=== PATIENT | female | born 1970 | race Caucasian/White ===

== ENCOUNTER → 2021-07-01 | Day surgery (SDC) | payer OTHER ==
[~2021-07-01] MED LIST: ARMOUR THYROID15 MG PO; EPINEPHRINE HCL 1:1000 1ML 1 MG/ML AMP ONE; GENTAMICIN SULFATE 40 MG/ML 2 ML VIAL ONE; HYDROCODON-ACE1 EAC9 PO; LIDOCAINE 1% W/EPINEPHRINE 20 ML VIAL ONE; LIDOCAINE HCL 1% LOCAL INJ 20 ML VIAL ONE; METOCLOPRAMIDE HCL 10 MG/2ML VIAL ONE; MUPIROCIN 2% OINT 22 GM TUBE ONE; ONDANSETRON HCL INJ 2MG/ML 2ML 2 MG/ML VIAL ONE; PROMETHAZINE HCL (IM) 25 MG/ML VIAL IM ONE; SODIUM CHLORIDE 0.9% 50ML 50 ML ONE; VICODIN HP 10-1 EAC1 PO; Z.0.ESTRACE0.5 MG; Z.0.LEVOTHROID50 MCG
[2021-07-01 10:45] VITALS: BP 121/67
== END | disposition home or self-care (01) ==
LOC: OR 06:42
PROVIDERS: ATTEND Plastic Surgery
DX: D17.22 Benign lipomatous neoplasm of skin and subcutaneous tissue of left arm (principal); E65 Localized adiposity; Z48.89 Encounter for other specified surgical aftercare; Z88.6 Allergy status to analgesic agent; Z01.810 Encounter for preprocedural cardiovascular examination; Z01.812 Encounter for preprocedural laboratory examination; Z20.822 Contact with and (suspected) exposure to COVID-19
CPT/HCPCS: 15879; 19342; 23071; 88304; 93005; J0171; J0690; J1580; J2001; J2405; J2550; J2765; L8600; U0002

== ENCOUNTER → 2022-06-10 | Day surgery (SDC) | payer OTHER ==
[~2022-06-10] MED LIST changes: -EPINEPHRINE HCL 1:1000 1ML 1 MG/ML AMP ONE; -GENTAMICIN SULFATE 40 MG/ML 2 ML VIAL ONE; +HYOSCYAMINE SULFATE 0.5 MG/ML INJ ONE; -LIDOCAINE 1% W/EPINEPHRINE 20 ML VIAL ONE; -LIDOCAINE HCL 1% LOCAL INJ 20 ML VIAL ONE; -METOCLOPRAMIDE HCL 10 MG/2ML VIAL ONE; -MUPIROCIN 2% OINT 22 GM TUBE ONE; -ONDANSETRON HCL INJ 2MG/ML 2ML 2 MG/ML VIAL ONE; -PROMETHAZINE HCL (IM) 25 MG/ML VIAL IM ONE; +PROPOFOL IV EMULSION 10 MG/ML 20 ML VIAL ONE; +PROPOFOL IV EMULSION 50 ML IV ONE; -SODIUM CHLORIDE 0.9% 50ML 50 ML ONE; +[UNRECOGNIZED DRUG - MIXTURE]
[2022-06-10 08:54] VITALS: BP 126/79
== END | disposition home or self-care (01) ==
LOC: OR 05:57
PROVIDERS: ATTEND Internal Medicine Gastroenterology
DX: Z12.11 Encounter for screening for malignant neoplasm of colon (principal); K64.8 Other hemorrhoids; Z71.3 Dietary counseling and surveillance; E03.9 Hypothyroidism, unspecified; Z88.6 Allergy status to analgesic agent; Z01.810 Encounter for preprocedural cardiovascular examination; Z68.28 Body mass index [BMI] 28.0-28.9, adult; Z86.16 Personal history of COVID-19
CPT/HCPCS: 45378; 93005; J2704; J1980

== ENCOUNTER 2022-07-20 10:19 | Observation (INO) | payer OTHER ==
[~2022-07-20] VITALS: Ht 175.3 cm; Wt 86.6 kg
[~2022-07-20 10:19] MED LIST changes: -HYOSCYAMINE SULFATE 0.5 MG/ML INJ ONE; -PROPOFOL IV EMULSION 10 MG/ML 20 ML VIAL ONE; -PROPOFOL IV EMULSION 50 ML IV ONE
[2022-07-20] MEDS ORDERED: FAMOTIDINE 20 MG/2 ML VIAL IV ONE ×2 (10:45→11:18)
[2022-07-20] MEDS ORDERED: ASPIRIN 325 MG TAB PO ONE (10:45)
[2022-07-20] MEDS ORDERED: ASPIRIN 325 MG TAB ONE (11:18)
[2022-07-20] MEDS ORDERED: DIPHENHYDRAMINE HCL INJ 50 MG/ML VIAL IV PRN (11:45)
[2022-07-20] MEDS ORDERED: SODIUM CHLORIDE FLUSH 10 ML SYR INJ PRN (11:45)
[2022-07-20] MEDS ORDERED: ACETAMINOPHEN 325 MG TAB PO PRN (11:45)
[2022-07-20] MEDS ORDERED: ONDANSETRON HCL INJ 2MG/ML 2ML 2 MG/ML VIAL IV PRN (11:45)
[2022-07-20] MEDS ORDERED: ZOLPIDEM TARTRATE 5 MG TAB PO PRN (11:45)
[2022-07-20 15:47] VITALS: BP 135/74
[2022-07-20 16:39] VITALS: BP 135/74
[2022-07-20 20:00] VITALS: BP 114/69
[2022-07-20] MEDS: FAMOTIDINE 20 MG TAB PO SCH (21:10)
[2022-07-20 23:29] VITALS: BP 114/69
[2022-07-20 23:34] VITALS: BP 114/69
[2022-07-21 00:39] VITALS: BP 98/63
[2022-07-21 01:25] LABS: CHOL/HDL RATIO 3.3 (3.0-3.6)
[2022-07-21 05:23] VITALS: BP 116/67
[2022-07-21 05:58] LABS: BASOPHILS % 0.4 % (0.0-1.0); EOSINOPHILS # (AUTO) 0.2 (0.0-0.4); HEMATOCRIT 44.3 % (34.2-44.1); HEMOGLOBIN 14.5 g/dL (12.0-16.0); LYMPHOCYTES # (AUTO) 2.2 (1.0-3.2); LYMPHOCYTES % 26.5 % (18.0-39.1); MEAN CORPUSCULAR HGB CONC 32.7 g/dL (31-35); MEAN CORPUSCULAR VOLUME 85.7 fL (81-99); MONOCYTES # (AUTO) 0.7 (0.2-0.8); MONOCYTES % 8.1 % (4.4-11.3); NEUTROPHILS # (AUTO) 5.3 (2.1-6.9); NEUTROPHILS % 62.8 % (38.7-80.0); PLATELET COUNT 199 x10e3/uL (140-360); RED BLOOD COUNT 5.17 x10e6/uL (3.6-5.1); RED CELL DISTRIBUTION WIDTH 12.4 % (11.7-14.4)
[2022-07-21 06:24] LABS: ALBUMIN/GLOBULIN RATIO 1.3 (0.8-2.0); ANION GAP 13.4 mmol/L (8-16); CALCIUM 8.7 mg/dL (8.4-10.2); CREATININE, SERUM 0.82 mg/dL (0.57-1.11); POTASSIUM 4.4 mmol/L (3.5-5.1)
[2022-07-21 06:43] LABS: THYROID STIMULATING HORMONE 1.571 uIU/mL (0.350-4.940)
[2022-07-21 08:38] VITALS: BP 116/70
[2022-07-21] MEDS ORDERED: ASPIRIN 325 MG TAB EC PO SCH (09:00)
[2022-07-21] MEDS: FAMOTIDINE 20 MG TAB PO SCH (09:00)
== END 2022-07-21 10:27 | disposition home or self-care (01) ==
LOC: FSED 10:23 → ERHOLD 11:46 → MED/SURG3 14:00
PROVIDERS: ADMIT Internal Medicine; ATTEND Internal Medicine
DX: R07.89 Other chest pain (principal); E03.9 Hypothyroidism, unspecified; Z88.5 Allergy status to narcotic agent; Z20.822 Contact with and (suspected) exposure to COVID-19; I10 Essential (primary) hypertension
CPT/HCPCS: 36415 ×2; 71046; 80053 ×2; 80061; 81003; 81025; 82550 ×2; 82553 ×2; 84443; 84484 ×2; 85025 ×2; 85379; 85610; 93005; 93017; 93306; 99284; G0378 ×2; U0002